=== PATIENT | male | born 1990 | race American Indian/Alaskan Native ===

== ENCOUNTER 2021-05-10 10:37 | Emergency (ER) | payer OTHER ==
[~2021-05-10] VITALS: Ht 162.6 cm; Wt 76.4 kg
[2021-05-10] MEDS ORDERED: NS 1,000 ML IV ONE (16:15)
[2021-05-10 16:57] LABS: BASO # 0.1 10^3/uL (0.0-0.2); BASO % 1.3 % (0.0-1.0); EOS # 0.1 10^3/uL (0.0-0.5); EOS % 2.4 % (0.0-3.0); HEMATOCRIT 48.4 % (42.0-52.0); HEMOGLOBIN 16.6 g/dl (13.5-17.5); LYMPH # 1.8 10^3/uL (1.5-5.0); LYMPH % 38.5 % (24.0-44.0); MEAN CORPUSCULAR HEMOGLOBIN 29.3 pg (27.0-33.0); MEAN CORPUSCULAR HGB CONC 34.3 g/dl (32.0-36.5); MEAN CORPUSCULAR VOLUME 85.4 fl (80.0-96.0); MONO # 0.3 10^3/uL (0.0-0.8); MONO % 6.1 % (2.0-8.0); NEUTROPHILS # 2.4 10^3/uL (1.5-8.5); NEUTROPHILS % 51.5 % (36.0-66.0); PLATELET COUNT, AUTOMATED 244 10^3/uL (150-450); RED BLOOD COUNT 5.67 10^6/uL (4.30-6.10); WHITE BLOOD COUNT 4.6 10^3/uL (4.0-10.0)
[2021-05-10] MEDS ORDERED: ISOVUE-370 76% 100ML VIAL As Ordered ONE (17:18)
[2021-05-10 17:51] LABS: ERYTHROCYTE SEDIMENTATION RATE 4 mm/hr (0-15)
[2021-05-10] MEDS ORDERED: VENTAER INH (18:40)
[2021-05-10 18:48] VITALS: BP 121/80
== END 2021-05-10 18:49 | disposition home or self-care (01) ==
LOC: M ED 10:37
DX: R06.02 Shortness of breath (principal); Z86.718 Personal history of other venous thrombosis and embolism; Z87.09 Personal history of other diseases of the respiratory system
CPT/HCPCS: 71275; 80047; 84484; 85025; 85652; 86140; 93005; 96360; 96361; 99284; Q9967

== ENCOUNTER 2022-05-20 19:43 | Emergency (ER) | payer OTHER ==
[~2022-05-20] VITALS: Ht 165.1 cm; Wt 79.5 kg
[~2022-05-20 19:43] MED LIST: VENTAER INH
[2022-05-20 20:36] LABS: BASO # 0.1 10^3/uL (0.0-0.2); BASO % 0.4 % (0.0-1.0); EOS # 0.1 10^3/uL (0.0-0.5); EOS % 0.8 % (0.0-3.0); HEMATOCRIT 56.1 % (42.0-52.0); HEMOGLOBIN 18.6 g/dl (13.5-17.5); LYMPH # 0.7 10^3/uL (1.5-5.0); LYMPH % 5.2 % (24.0-44.0); MEAN CORPUSCULAR HEMOGLOBIN 29.4 pg (27.0-33.0); MEAN CORPUSCULAR HGB CONC 33.2 g/dl (32.0-36.5); MEAN CORPUSCULAR VOLUME 88.6 fl (80.0-96.0); MONO # 0.6 10^3/uL (0.0-0.8); MONO % 4.6 % (2.0-8.0); NEUTROPHILS # 11.2 10^3/uL (1.5-8.5); NEUTROPHILS % 88.7 % (36.0-66.0); PLATELET COUNT, AUTOMATED 253 10^3/uL (150-450); RED BLOOD COUNT 6.33 10^6/uL (4.30-6.10); WHITE BLOOD COUNT 12.6 10^3/uL (4.0-10.0)
[2022-05-20 21:04] LABS: LIPASE 48 U/L (12-53)
[2022-05-20 21:05] LABS: BILIRUBIN,DIRECT 0.2 MG/DL (<0.4)
[2022-05-20 21:06] LABS: ALBUMIN 4.8 G/DL (3.2-5.2); ALKALINE PHOSPHATASE 109 U/L (46-116); ALT/SGPT 91 U/L (7.0-40); AST/SGOT 36 U/L (<34); BILIRUBIN,TOTAL 0.7 MG/DL (0.3-1.2); BLOOD UREA NITROGEN 21 MG/DL (9-23); CALCIUM LEVEL 9.5 MG/DL (8.5-10.1); CARBON DIOXIDE LEVEL 26 MMOL/L (20-31); CHLORIDE LEVEL 104 MMOL/L (98-107); CREATININE FOR GFR 1.05 MG/DL (0.70-1.30); GLOMERULAR FILTRATION RATE > 60.0 (>60); GLUCOSE, FASTING 103 MG/DL (60-100); SODIUM LEVEL 141 MMOL/L (136-145); TOTAL PROTEIN 8.2 G/DL (5.7-8.2)
[2022-05-20] MEDS ORDERED: ONDANSETRON 4MG 2ML VIAL IV ONE (22:05)
[2022-05-20] MEDS ORDERED: NS 1,000 ML IV ONE (22:05)
[2022-05-20] MEDS ORDERED: KETOROLAC 30 MG/ML 1ML VIAL IV ONE (22:05)
[2022-05-20] MEDS ORDERED: ISOVUE-370 76% 100ML VIAL As Ordered ONE (23:36)
[2022-05-20] MEDS ORDERED: PANTOPRAZOLE 40MG VIAL IV ONE (23:40)
[2022-05-20] MEDS ORDERED: GI COCKTAIL 50ML BTL(HYOSCYAMINE/MAALOX/LIDOCAINE VISCOUS)(1:3:1) PO ONE (23:40)
[2022-05-20] MEDS ORDERED: SUCRALFATE 1 GM TAB PO ONE (23:40)
[2022-05-21] MEDS ORDERED: ONDA4TAB6 PO (00:29)
[2022-05-21] MEDS ORDERED: CARA1TAB6 PO (00:29)
[2022-05-21] MEDS ORDERED: OMEP40CA5 PO (00:29)
[2022-05-21] MEDS ORDERED: OMEPRAZOLE 20MG CAP PO ONE (00:30)
[2022-05-21 00:46] VITALS: BP 110/68
== END 2022-05-21 00:47 | disposition home or self-care (01) ==
LOC: M ED 19:43
DX: R10.9 Unspecified abdominal pain (principal); R11.2 Nausea with vomiting, unspecified; Z86.718 Personal history of other venous thrombosis and embolism; Z79.899 Other long term (current) drug therapy; Z79.810 Long term (current) use of selective estrogen receptor modulators (SERMs)
CPT/HCPCS: 74177; 76705; 80053; 82248; 83690; 85025; 87428; 96361; 96374; 99284; J1885; J2405

== ENCOUNTER 2022-06-20 17:01 | Emergency (ER) | payer OTHER ==
[~2022-06-20] VITALS: Ht 162.6 cm; Wt 76.8 kg
[~2022-06-20 17:01] MED LIST changes: +CARA1TAB6 PO; +OMEP40CA5 PO; +ONDA4TAB6 PO
[2022-06-20 20:26] VITALS: BP 138/90
== END 2022-06-20 20:30 | disposition home or self-care (01) ==
LOC: M ED 17:42
DX: S89.91XA Unspecified injury of right lower leg, initial encounter (principal); S20.211A Contusion of right front wall of thorax, initial encounter; V44.0XXA Car driver injured in collision with heavy transport vehicle or bus in nontraffic accident, initial encounter; Z86.718 Personal history of other venous thrombosis and embolism; Z79.899 Other long term (current) drug therapy